=== PATIENT | male | born 1960 | race Caucasian/White ===

== ENCOUNTER 2022-06-23 08:00 | Emergency (ER) | payer SELFPAY ==
[2022-06-23 08:14] VITALS: BP 137/81
[2022-06-23 08:59] LABS: Alanine Aminotransferase 44 units/L (7-56); Albumin 4.8 g/dL (3.9-5); BUN/Creatinine Ratio 22; Blood Urea Nitrogen 22 mg/dL (9-20); Hemolysis Index 7
[2022-06-23 09:50] LABS: Basophils % (Auto) 0.2 % (0.0-1.8); Eosinophils % (Auto) 0.1 % (0.0-4.3); Lymphocytes # (Auto) 2.2 K/mm3 (1.2-5.4); Mean Corpuscular HGB Conc 31 % (32-34); Mean Corpuscular Volume 73 fl (84-94); Monocytes # (Auto) 0.8 K/mm3 (0.0-0.8); Monocytes % (Auto) 8.9 % (0.0-7.3); Platelet Count 403 K/mm3 (140-440); Red Blood Count 6.73 M/mm3 (3.65-5.03); Red Cell Distribution Width 13.5 % (13.2-15.2)
[2022-06-23 12:01] LABS: Hematocrit 49.1 % (35.5-45.6); Hemoglobin 15.1 gm/dl (11.8-15.2)
== END 2022-06-23 16:46 | disposition left against medical advice (07) ==
LOC: ED 08:00
DX: R19.7 Diarrhea, unspecified (principal); R53.1 Weakness; Z53.21 Procedure and treatment not carried out due to patient leaving prior to being seen by health care provider
CPT/HCPCS: 36415; 80053; 85025